=== PATIENT | female | born 1970 | race Caucasian/White ===

== ENCOUNTER 2017-04-16 10:03 | Outpatient (CLI) ==
[2015-05-20 14:14] VITALS: BMI 25.1
[2017-04-16 10:18] LABS: BASOPHILS % (AUTO) 0.5 % (0.0-3.0); EOSINOPHILS # (AUTO) 0.3 K/ul (0.0-0.7); EOSINOPHILS % (AUTO) 4.4 % (0.0-7.0); HEMATOCRIT 42.1 % (37.0-47.0); HEMOGLOBIN 13.9 g/dl (12.0-16.0); IMMATURE GRANULOCYTE % (AUTO) 0.2 % (0.0-5.0); LYMPHOCYTES # (AUTO) 1.8 K/uL (0.60-3.4); LYMPHOCYTES % (AUTO) 30.9 (10.0-50.0); MEAN CORPUSCULAR HEMOGLOBIN 31.2 pg (27.0-31.0); MEAN CORPUSCULAR VOLUME 94.4 fl (81.0-99.0); MONOCYTES # (AUTO) 0.4 K/uL (0.4-2.0); MONOCYTES % (AUTO) 6.3 (0-10); NEUTROPHILS # (AUTO) 3.4 K/ul (2.0-6.9); NEUTROPHILS % (AUTO) 57.7; PLATELET COUNT 233 10^3/uL (140-440); RED BLOOD COUNT 4.46 10^6/ul (4.20-5.40); WHITE BLOOD COUNT 5.86 K/ul (4.6-10.2)
[2017-04-16 10:58] LABS: ALBUMIN 3.5 g/dL (3.4-5.0); ALBUMIN/GLOBULIN RATIO 1.03; BILIRUBIN,TOTAL 0.4 mg/dL (0.00-1.20); BUN/CREATININE RATIO 8.86; CHOL/HDL RATIO 4.2 (4.5-5.5); CREATININE 0.79 mg/dL (0.60-1.30); TOTAL PROTEIN 6.9 g/dL (6.4-8.2)
--- NOTE | 2017-04-17 08:55 | MAMMO ---
EXAM: Bilateral digital screening mammogram (2-D and 3-D) History: Screening Comparison: Bilateral mammogram 08/10/2013 Findings: MLO and CC views of bilateral breasts demonstrate scattered fibroglandular breast parenchy ma. CAD was reviewed by the radiologist. Tomosynthesis was performed. There are no dominant masses , no suspicious microcalcifications and no architectural distortions Impression: Stable negative mammogram. Recommend followup routine screening mammography in 1 year. BIRADS 1
== END 2017-04-16 10:04 | disposition home or self-care (01) ==
LOC: RAD 10:03
PROVIDERS: ATTEND Nurse Practitioner Family
DX: Z12.31 Encounter for screening mammogram for malignant neoplasm of breast (principal); Z00.00 Encounter for general adult medical examination without abnormal findings
CPT/HCPCS: 36415; 77067; 80053; 80061; 84439; 84443; 85025